=== PATIENT | female | born 2000 | race African-American/Black ===

== ENCOUNTER 2022-10-11 00:39 | Emergency (ER) | payer OTHER, SELFPAY ==
[2022-10-11 00:43] VITALS: BP 123/80; PULSE 96; RESP 14; TEMP 36.8; O2SAT 100
--- NOTE | 2022-10-11 00:51 | ED.ALLEREA ---
HPI - Allergic Reaction General Chief complaint: Allergic Reaction Stated complaint: Allergic reaction?, Hives Time Seen by Provider: 10/11/22 00:50 History of Present Illness HPI narrative: 22-year-old female presents emergency room for evaluation of a allergic reaction and a rash to her lower extremities. Patient states that she ate pizza 2 hours ago and immediately began to develop a rash to her bilateral lower extremities. Patient denies any shortness of breath difficulty breathing or chest pain. Patient has no known environmental, food or drug allergies. Related Data Allergies Allergy/AdvReac Type Severity Reaction Status Date / Time corn Allergy Hives Verified 10/11/22 01:09 Review of Systems Review of Systems: CONSTITUTIONAL: Denies fever, chills, or sweats. EYES: Denies visual changes, redness, or discharge. ENT: Denies rhinorrhea, congestion, sore throat, or otalgia. CARDIOVASCULAR: Denies chest pain, palpitations, or edema. RESPIRATORY: Denies cough or dyspnea. GASTROINTESTINAL: Denies abdominal pain, nausea, vomiting, or diarrhea. GENITOURINARY: Denies dysuria or hematuria. SKIN: Reports rash to lower extremities MUSCULOSKELETAL: Denies back pain, joint pain, or myalgia. NEUROLOGIC: Denies headache, numbness, dizziness, or weakness. PSYCHIATRIC: Denies anxiety or depression. Exam Narrative: GENERAL: Well-appearing, well-nourished, no physical limitations, and in no acute distress. HEAD: Normocephalic, atraumatic. EYES: Conjunctivae normal, PERRLA and EOMI. CHEST: Clear to auscultation. No respiratory distress. No wheezes rales or rhonchi. HEART: Regular rate and rhythm. No murmur heard. Normal peripheral pulses. ABDOMEN: Soft, nontender, nondistended, normal active bowel sounds. EXTREMITIES: Normal range of motion. No edema. No clubbing or cyanosis SKIN: Urticaria to bilateral lower extremities NEURO: No focal deficits. Alert and oriented x3. MAEW. CN's II-XI intact bilaterally, normal gait PSYCH: Cooperative. Normal mood and affect. Course Vital Signs Vital signs: Vital Signs Temperature 36.8 C 10/11/22 00:43 Pulse Rate 96 10/11/22 00:43 Respiratory Rate 14 10/11/22 00:43 Blood Pressure 123/80 10/11/22 00:43 Pulse Oximetry 100 11/22/22 00:43 Oxygen Delivery Room Air 10/11/22 00:43 Temperature 36.8 C 10/11/22 00:43 Pulse Rate 96 10/11/22 00:43 Respiratory Rate 14 10/11/22 00:43 Blood Pressure 123/80 10/11/22 00:43 Pulse Oximetry 100 10/11/22 00:43 Oxygen Delivery Room Air 10/11/22 00:43 Discharge Plan Discharge Clinical Impression: Allergic reaction, Urticaria Patient Disposition: Home, Self-Care Condition: Stable Instructions: Antibiotic Form, Urticaria (ED), Food Allergy (ED) Additional Instructions: Take Benadryl as needed for the rash and any itching. Prescriptions: New prednisone 20 mg tablet 60 mg PO DAILY Qty: 15 0RF Follow-up/Referrals: PHYSICIAN NOT ON STAFF,NONSTAFF [Non-Staff] - Time of Disposition: 00:54
[2022-10-11] MEDS: SODIUM CHLORIDE 0.9% IV 1,000 ML 999 ML IV CONT (01:05)
[2022-10-11] MEDS: methylPREDNISolone SOD SUCC 125 MG VIAL IV PUSH (01:07)
[2022-10-11] MEDS: FAMOTIDINE 20 MG/2 ML VIAL IV PUSH (01:07)
[2022-10-11] MEDS: diphenhydrAMINE HCl INJ 50 MG/ML VIAL 25 MG IV PUSH (01:07)
[2022-10-11 02:10] VITALS: BP 106/67; PULSE 66; RESP 16; O2SAT 99
== END 2022-10-11 02:10 | disposition home or self-care (01) ==
LOC: ANHED 01:04
PROVIDERS: Emergency Provider Nurse Practitioner Family
DX: T78.40XA Allergy, unspecified, initial encounter (principal); L50.9 Urticaria, unspecified
CPT/HCPCS: 96361; 96374; 96375; 99284; J1200; J2930; J7030